=== PATIENT | male | born 1965 | race Caucasian/White ===

== ENCOUNTER 2020-01-31 12:29 | Outpatient (NON) | payer OTHER, SELFPAY ==
[2020-02-01 14:03] LABS: SARS-CoV-2 RNA PCR Negative
== END 2020-01-31 12:30 ==
LOC: ANHCOVIDDT 12:33
PROVIDERS: Visit Provider Registered Nurse
DX: Z20.828 Contact with and (suspected) exposure to other viral communicable diseases (principal); R52 Pain, unspecified
CPT/HCPCS: 87635; C9803; U0003

== ENCOUNTER 2020-04-13 01:26 | Outpatient (CLI) | payer OTHER, SELFPAY ==
[2020-04-13 18:47] LABS: SARS-CoV-2 RNA PCR Negative
== END 2020-04-13 01:27 | disposition home or self-care (01) ==
LOC: ANHCOVIDDT 01:26
PROVIDERS: PCP Family Medicine Adolescent Medicine; Visit Provider Surgery
DX: Z01.812 Encounter for preprocedural laboratory examination (principal); Z20.822 Contact with and (suspected) exposure to COVID-19
CPT/HCPCS: C9803; U0003; U0005

== ENCOUNTER 2020-04-15 08:13 | Outpatient (CLI) | payer OTHER, SELFPAY ==
--- NOTE | 2020-04-15 08:15 | ECG_ITS ---
Measurements Intervals [place] Rate: 71 P: 73 [place]: 155 QRS: 29 QRSD: 98 T: 32 QT: 398 QTc: 434 Interpretive Statements SINUS RHYTHM BASELINE ARTIFACT- I, II, AVR NORMAL ECG Electronically Signed On 04-15-2020 8:38:54 PSYCHIATRIC SPECIALIST by Boris Hammonds D.O.
== END 2020-04-15 08:14 | disposition home or self-care (01) ==
LOC: ANHSURGERY 08:15
PROVIDERS: PCP Family Medicine Adolescent Medicine; Visit Provider Surgery
DX: K43.9 Ventral hernia without obstruction or gangrene (principal); Z01.818 Encounter for other preprocedural examination
CPT/HCPCS: 36415; 86850; 86900; 86901; 93005

== ENCOUNTER 2020-04-16 01:44 | Day surgery (SDC) | payer OTHER, SELFPAY ==
[2020-04-11 15:09] VITALS: BMI 26.9
--- NOTE | 2020-04-15 15:16 | WPDANESEPPF ---
Anes - Initial Pre Proc Eval Procedure: Operation Date: 04/16/20 10:30 Proposed Procedures p Laparoscopic Ventral Hernia Repair With Mesh, Davinci Assisted - Eh Perez DO Date/Time: 04/15/20 15:16 Surgeon: Eh Perez DO Pre Op Diagnosis: Ventral Hernia Patient Data Age: 54 Gender: M Height: 1.83 m Weight: 90 kg Allergies Allergy/AdvReac Type Severity Reaction Status Date / Time No Known Allergies Allergy Verified 04/16/20 08:31 Home Medications Medication Instructions Recorded Confirmed Type losartan 100 mg tablet 100 mg PO DAILY 04/02/20 04/16/20 History Patient hx anesthesia problems: none Family hx anesthesia problems: none PMFSH Past Medical History Medical History (Updated 04/15/20 @ 15:17 by Suleiman Haider MD) Hypertension Smoker Ventral hernia without obstruction or gangrene Surgical History Surgical History S/P meniscectomy Family History Family History Father Family history of cardiovascular disease Family history of dementia Family history of lung disease Sibling Malignant neoplasm of prostate Mother Family history of malignant neoplasm of breast in first degree relative Esophageal cancer Social History Social History Smoking status: Current some day smoker Tobacco type: cigars Smokeless tobacco user: chewing tobacco Alcohol intake: current Living arrangements: with family Gender identity (if verbalized by the patient): Male Spiritual care concerns: No Anes - Eval Final PreProcedure Day of Procedure 04/15/20 15:16 Patient weight: overweight Heart: regular rate and rhythm Lungs: clear to auscultation and normal air movement Airway: Mallampati scale class II Neurological: alert and oriented Last oral intake: >/= 8 hours ASA classification: II Emergent: no Anesthetic plan: proceed Anesthesia type and monitoring: general ETT Informed Consent: The patient's anesthetic plan and its attendant risks and benefits were discussed with the patient/family/POA. Questions were solicited and answers provided to the satisfaction of the patient/family/POA.
[2020-04-16] VITALS (10 sets, daily range): BP systolic 114–127; BP diastolic 60–85; PULSE 56–80; RESP 13–20; TEMP 36.4; O2SAT 99–100; BMI 26.6
[2020-04-16] MEDS: KETOROLAC 15 MG/ML VIAL (*BKC) IV PUSH (09:04)
[2020-04-16] MEDS: ACETAMINOPHEN 500 MG TABLET 1000 MG PO (09:04)
[2020-04-16] MEDS: LACTATED RINGERS 1,000 ML 30 ML IV CONT ×2 (09:04→13:41)
--- NOTE | 2020-04-16 09:53 | WPDHPUPDATE1 ---
History and Physical Update Update Date/Time: 04/16/20 09:53 History and Physical has been reviewed, including an updated exam of the patient. There are NO changes in the patient's condition. Risks, benefits, and alternatives have been discussed and questions answered. Patient agrees to proceed with procedure.
[2020-04-16] MEDS: ceFAZolin 2 GM/D5W 50 ML 2 GM/50 ML BAG IVPB (11:25)
--- NOTE | 2020-04-16 13:26 | PM.PROC ---
Procedure Note - Detailed Date of procedure: 04/16/20 Pre-op diagnosis: Ventral Hernia Post-op diagnosis: same Procedure performed: Laparoscopic ventral hernia repair with Symbotex mesh, da Pedro Pablo assisted Description of procedure: Procedure as well as risks, benefits, and alternatives were discussed with the patient. Written consent was obtained and placed in chart prior to procedure. Patient was brought back to surgical suite. He was placed supine on operating table. Time-out was done to confirm patient and procedure. He was then intubated by the anesthesia department. A bump was placed under his left hip, and the bed was flexed slightly to extend the space between his costal margin and iliac crest. His abdomen was prepped and draped in sterile fashion using chlorhexidine prep. A 5 millimeter incision was made in the left upper quadrant, and a 5 millimeter Optiview trocar was advanced through the abdominal layers under direct visualization. Once inside the abdominal cavity, carbon dioxide insufflation was used to create a pneumoperitoneum. His abdomen was inspected. An 8 millimeter incision was made in the left lower quadrant, and an 8 millimeter robotic trocar was placed under direct visualization. Another 8 millimeter incision was made in the left lateral abdomen, and an 8 millimeter robotic trocar was placed under direct visualization. Exparel was infiltrated along the lateral abdominal quarles to perform a transversus abdominis plane block bilaterally. The 5 millimeter port was removed, the incision was extended to 12 millimeters, and a 12 millimeter air seal port was placed under direct visualization. A Kiet-Beth cone was also used to place an 0-Vicryl simple interrupted suture at this trocar site. The robotic arms were brought up to the patient's bedside and secured to the ports. The camera and instruments were inserted, and I then moved over to the robotic console and took control of the camera and instruments. After careful thorough inspection of the abdominal cavity, I began my dissection at the hernia. The hernia sac and preperitoneal fat was taken down using scissors with electrocautery. I also cleared the fascia of the falciform ligament and infraumbilical preperitoneal fat with electrocautery. The excised preperitoneal fat and hernia sac was then placed in an Endo-Catch bag and removed through the 12 mm port. I then measured the hernia size. The hernia measured 2 cm wide by 1 cm vertical. The fascia was closed using an 0-Stratafix running suture in a vertical fashion. A Symbotex 10cm x 15cm mesh was then placed within the abdominal cavity. This was oriented vertically with the mesh centered on the hernia defect. The mesh was then secured at the peripheral margins using 2 0 V lock running absorbable suture. The repair was inspected, and one final inspection was made around the abdominal cavity. The robotic instruments were then removed, and the robotic arms were disengaged from the trocars. The ports were then removed under direct visualization, the camera was removed, and the pneumoperitoneum was released. The 0 Vicryl transfascial suture was tied down. The skin of the incisions was then approximated using 4-0 Monocryl subcuticular suture. Exofin glue was then applied on top. The patient was then awakened from anesthesia, extubated, and transferred to recovery. Implants: Symbotex 10cm x 15cm Anesthesia: GETA and local (Exparel) Surgeon: Eh Perez DO Estimated blood loss (mL): 5 Drains: No Pathology: none sent Complications: No immediate complications Condition: stable Disposition: same day Findings: This is a 54-year-old man who presented with a bulge just superior to his umbilicus for the past several years. Over the past month he has noted this become painful with activity. The bulge has become somewhat larger over time as well. On exam he was found to have a reducible hernia just superior to his umbilicus. Dis
[2020-04-16] MEDS: oxyCODONE HCL (*CRX) 5 MG TAB IR PO (15:03)
== END 2020-04-16 15:56 | disposition home or self-care (01) ==
PROVIDERS: PCP Family Medicine Adolescent Medicine; Visit Provider Surgery
PROC: (CPT 49652; principal; 2020-04-16 10:30)
DX: K43.9 Ventral hernia without obstruction or gangrene (principal); I10 Essential (primary) hypertension; F17.290 Nicotine dependence, other tobacco product, uncomplicated; F17.220 Nicotine dependence, chewing tobacco, uncomplicated
CPT/HCPCS: 49652; S2900; 36415; 86850; 86900; 86901; 93005; A9270; C1781; C9290; C9803; J0690; J1170; J1885; J2250; J3010; J7030; J7120; U0003; U0005

== ENCOUNTER 2021-04-07 16:29 | Emergency (ER) | payer OTHER, SELFPAY ==
[2021-04-07 16:36] VITALS: BP 128/78; PULSE 91; RESP 16; TEMP 36.4; O2SAT 100
--- NOTE | 2021-04-07 16:38 | ED.SKABFB ---
HPI - Skin/Abscess/Foreign Bdy General Chief complaint: Skin/Abscess/Foreign Body Stated complaint: hives Time Seen by Provider: 04/07/21 16:39 Source: patient, RN notes reviewed and old records reviewed Mode of arrival: ambulatory Limitations: no limitations History of Present Illness HPI narrative: 55-year-old male presents to [facility] with 2-day duration of rash which is itchy and contains raised blanchable hives various areas on the body. Patient has noted hive like rash noted to chest , back and neck, states he took 2 benadry this afternoon which did help the itching for awhile. Patient reports no new medications, food, soaps. lotions, laundry detergents, reports no one else in household has rash, no recent travel or any new pets. Patient reports that he has no difficutly with his swallowing or with his breathing with lungs clear to auscultation. MD complaint: rash Onset (ago): day(s) (2) Tetanus up to date: unsure Location: neck, chest and back Severity: moderate Related Data Home Medications Medication Instructions Recorded Confirmed losartan 100 mg tablet 100 mg PO DAILY 04/02/20 06/10/20 Allergies Allergy/AdvReac Type Severity Reaction Status Date / Time No Known Allergies Allergy Verified 06/06/20 14:20 Review of Systems Review of Systems: CONSTITUTIONAL: Denies fever, chills, or sweats. EYES: Denies visual changes, redness, or discharge. ENT: Denies rhinorrhea, congestion, sore throat, or otalgia. CARDIOVASCULAR: Denies chest pain, palpitations, or edema. RESPIRATORY: Denies cough or dyspnea. GASTROINTESTINAL: Denies abdominal pain, nausea, vomiting, or diarrhea. GENITOURINARY: Denies dysuria or hematuria. SKIN: positive for red raised hive type of rash with itching. MUSCULOSKELETAL: Denies back pain, joint pain, or myalgia. NEUROLOGIC: Denies headache, numbness, or weakness. PSYCHIATRIC: Denies anxiety or depression. All systems reviewed & are unremarkable except as noted in HPI and below PMFSH Past Medical History Medical History Abnormal colonoscopy 12/01, polyp Repeat 12/06 Hypertension Smoker Ventral hernia without obstruction or gangrene Surgical History Surgical History H/O ventral hernia repair 04/16/20 Laparoscopic ventral hernia repair with Symbotex mesh, da Pedro Pablo assisted S/P meniscectomy Family History Family History Father Family history of cardiovascular disease Family history of dementia Family history of lung disease Sibling Malignant neoplasm of prostate Mother Family history of malignant neoplasm of breast in first degree relative Esophageal cancer Social History Social History Smoking status: Current every day smoker Tobacco type: cigars Smokeless tobacco user: chewing tobacco Alcohol intake: current Gender identity (if verbalized by the patient): Male Spiritual care concerns: No Comments At time of signature, agree with nursing past medical, surgical, social and family history. There is no relevant family history pertinent to the presenting complaint Exam Narrative: GENERAL: Well-appearing, well-nourished, and in no acute distress. HEAD: Normocephalic, atraumatic. EYES: PERRLA and EOMI. ENT: Nares clear, no rhinorrhea or epistaxis. Mucous membranes moist.TM's normal with good light reflex, throat pink with no lesions or exudates no tonsil swelling. NECK: Supple.no lymphadenopathy CHEST: Clear to auscultation. No respiratory distress. SAO2 100% o room air. no tachypnea or accessory muscle use. HEART: Regular rate and rhythm. No murmur heard. Normal peripheral pulses. ABDOMEN: Soft, nontender, nondistended, normal active bowel sounds. EXTREMITIES: Normal range of motion. No edema. SKIN: Warm, dry, blanchable red raised hive type of lala
[2021-04-07] MEDS: methylPREDNISolone ACETATE 80 MG/ML VIAL IM (16:55)
== END 2021-04-07 17:13 | disposition home or self-care (01) ==
PROVIDERS: Emergency Provider Registered Nurse; PCP Family Medicine Adolescent Medicine
DX: L23.9 Allergic contact dermatitis, unspecified cause (principal); F17.290 Nicotine dependence, other tobacco product, uncomplicated; I10 Essential (primary) hypertension
CPT/HCPCS: 96372; 99213; G0463; J1040

== ENCOUNTER → 2022-06-02 15:11 | Outpatient (CLI) | payer OTHER, SELFPAY ==
--- NOTE | ~2022-06-02 | XR_ITS ---
EXAMINATION: XR chest 2V Exam Date/Time: 06/02/2022 15:16 CDT HISTORY: Shortness of breath; hx of HTN, smoker Comparison: None available. RESULT: Lines, tubes, and devices: None. Lungs and pleura: Clear. Cardiomediastinal silhouette: Normal. Other: No acute osseous or upper abdominal finding. IMPRESSION: No acute cardiopulmonary process. Reviewed, dictated and finalized at location K.
== END ==
PROVIDERS: PCP Family Medicine Adolescent Medicine; Visit Provider Physician Assistant
DX: R06.02 Shortness of breath (principal); I10 Essential (primary) hypertension
CPT/HCPCS: 71046

== ENCOUNTER 2024-05-02 14:45 | Outpatient (CLI) | payer OTHER, SELFPAY ==
--- NOTE | ~2024-05-02 | MR_ITS ---
EXAMINATION: MR knee LT wo con DATE: 05/02/2024 15:14 INDICATION: Left knee pain TECHNIQUE: Magnetic resonance imaging (MRI) of the left knee was performed without intravenous contra st. Sequences included coronal PD-weighted FSE, coronal PD-weighted FS FSE, sagittal T2-weighted FSE , sagittal PD-weighted FS FSE and axial PD weighted fat saturated FSE. COMPARISON: None. FINDINGS: Medial compartment: Complex tear at the posterior horn of the medial meniscus. Articular cartilage is normal. Lateral compartment: Lateral meniscus is normal. Partial-thickness chondral fissuring at the central aspect of the lateral tibial plateau. Articular cartilage along the weightbearing lateral femoral condyle is normal. Patellofemoral compartment: Deep chondral fissuring with mild subarticular edema-like signal change at the patellar apical ridge and at the lateral patellar facet. Ligaments and tendons: Anterior and posterior cruciate ligaments are normal. The medial collateral ligament and fibular thong ateral ligament complex are normal. The extensor mechanism is normal. The visualized medial and later al hamstring tendons as well as the iliotibial band are normal. Fluid: Physiologic amount of fluid in the joint space. No loose osteochondral bodies identified. Osseous/other: No fracture or pathologic marrow replacing process. IMPRESSION: 1. Complex tear of the posterior horn of the medial meniscus. 2. 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 Reviewed, dictated and finalized at location A. N HOT WIRE CUTTER IMPRESSION: 1. Complex tear of the posterior horn of the medial meniscus. 2. Mild distal femoral and lateral compartment osteoarthritis with high-grade p atellar and moderate grade lateral tibial plateau chondromalacia.
== END 2024-05-02 14:46 | disposition home or self-care (01) ==
LOC: GOSHIMG 14:46
PROVIDERS: PCP Family Medicine Adolescent Medicine; Visit Provider Family Medicine Adolescent Medicine
DX: S83.232A Complex tear of medial meniscus, current injury, left knee, initial encounter (principal); X58.XXXA Exposure to other specified factors, initial encounter; M17.12 Unilateral primary osteoarthritis, left knee
CPT/HCPCS: 73721

== ENCOUNTER 2024-09-11 14:02 | Emergency (ER) | payer OTHER, SELFPAY ==
[2024-09-11 14:08] VITALS: BP 121/91; PULSE 84; RESP 16; TEMP 36.8; O2SAT 99
--- NOTE | 2024-09-11 14:14 | ED_ITS ---
HPI - Eye Problem General Chief complaint: Eye Problems Stated complaint: Eye Irritation Source: patient and RN notes reviewed Mode of arrival: ambulatory Limitations: no limitations History of Present Illness HPI Narrative: Patient is a 59 year old male who presents to the [facility] with complaints of left eye pain. Patient states that he was cleaning the outside of his house with bleach, and the bleach splashed up into his eye. He reports left eye pain, redness, and excessive tearing. States that he immediately flushed the eye following the incident. Related Data Home Medications ?Medication ?Instructions ?Recorded ?Confirmed ?Last Taken ?Type Fish Oil 09/11/24 Unknown History Allergies Allergy/AdvReac Type Severity Reaction Status Date / Time No Known Allergies Allergy Verified 09/11/24 14:08 Review of Systems Review of Systems: CONSTITUTIONAL: Denies fever, chills, or sweats. EYES: Reports left eye pain ENT: Denies otalgia and sore throat CARDIOVASCULAR: Denies chest pain, palpitations, or edema. RESPIRATORY: Denies cough or dyspnea. GASTROINTESTINAL: Denies abdominal pain, nausea, vomiting, or diarrhea. GENITOURINARY: Denies dysuria or hematuria. SKIN: Denies rash or itching. MUSCULOSKELETAL: Denies back pain, joint pain, or myalgia. NEUROLOGIC: Denies headache, numbness, or weakness. Pertinent positives per HPI. PMFSH Past Medical History Medical History Abnormal colonoscopy 12/01, polyp Repeat 12/06 Smoker Ventral hernia without obstruction or gangrene Hypertension Surgical History Surgical History History of hydrocelectomy (02/2024) Left H/O ventral hernia repair (04/2020) 04/16/20 Laparoscopic ventral hernia repair with Symbotex mesh, da Pedro Pablo assisted S/P meniscectomy Family History Family History Father Family history of cardiovascular disease Family history of dementia Family history of lung disease Sibling Malignant neoplasm of prostate Mother Family history of malignant neoplasm of breast in first degree relative Esophageal cancer Social History Social History Smoking status: Current every day smoker Tobacco type: cigars Smokeless tobacco user: chewing tobacco Alcohol intake: current Do You Feel Safe in your Home?: Yes Lack of Transportation: No Lack of Food: Never True Current Housing: I Have Housing Concerned About Future Housing: No Difficulty Paying Gas/Electric Bills: No Difficulty Paying for Meds: No Currently Unemployed: No Education: Master's Degree or Higher Difficulty w/ Childcare or Family Care: No Living arrangements: with family Gender identity (if verbalized by the patient): Male Spiritual care concerns: No Comments At the time of my signature, I reviewed and agree with the nursing past medical, surgical, social, and family history. There is no relevant family history pertinent to the patient complaint. Exam Narrative: GENERAL: This is a well-nourished, well-developed patient, in no apparent distress. HEAD: normocephalic, atraumatic. EYES: Left eye is injected with excessive tearing. EARS: External ears normal, auditory canals clear and without drainage, TMs normal without perforation. Hearing grossly intact. NOSE: External nose normal with no obvious nasal discharge, nares without redness, no rhinorrhea. THROAT: Mucous membranes moist, posterior pharynx clear. NECK: Neck supple, non-tender without lymphadenopathy, masses or thyromegaly. CARDIOVASCULAR: Regular rate and rhythm without murmurs, gallops, or rubs. RESPIRATORY: Clear to auscultation. GASTROINTESTINAL: Abdomen soft, non-tender. No guarding. SKIN: warm, intact with no suspicious lesions or rash, good texture and turgor. NEURO: awake, alert, and oriented to person, place and time. There were no obvious focal neurologic abnormalities. Course Course Level of Care: Express Care Visit Vital Signs Vital signs: Vital Signs Temperature 98.2 F 09/11/24 14:08 Pulse Rate 84 09/11/24 14:08 Respiratory Rate 16 09/11/24 14:08 Blood Pressure 121/91 H 09/11/24 14:08 Pulse Oximetry 99 09/11/24 14:08 Oxygen Delivery Room Air 09/11/24 14:08 Temperature 98.2 F 09/11/24 14:08 Pulse Rate 84 09/11/24 14:08 Respiratory Rate 16 09/11/24 14:08 Blood Pressure 121/91 H 09/11/24 14:08 Pulse Oximetry 99 09/11/24 14:08 Oxygen Delivery Room Air 09/11/24 14:08 Reviewed MDM - Eye Problem MDM Narrative Medical decision making narrative: No pH/litmus paper available to test PH of the eye. [facility] contacted and accepted patient for evaluation. Patient advised to go directly to their [place] office. Molecular Genetic Pathologist is expecting him. Patient agreed to go stra ight to [facility]. is driving patient there. Differential Diagnosis Differential diagnosis: Likely corneal abrasion, corneal ulcer and other (chemical burn to left eye) Critical Care Time Critical Care Time Critical Care Time: No Discharge Plan Discharge Clinical Impression: Chemical injury of left eye Patient Disposition: Home Condition: Stable Instructions: Chemical Eye Jonse (ED) Additional Instructions: Go directly to [facility] in [place], [place] for evaluation. Eye drops as prescribed. -Do this for 3 to 4 days until all redness and discharge has disappeared. -Cold compresses to the affected eye for comfort -May need warm compresses to remove debris in the morning -When cleaning the eyes used a washcloth/cotton ball in one direction then ch radhames washcloths/cotton ball before using it on another eye. -Do not share medicine--do not touch the eye with the medicine -Alternate or take Tylenol or ibuprofen as directed in the bottle for pain -Avoid screen time--television, computer, tablet or phone. Follow-up with PCP or thermograph operator if condition is not improving in 3-5days or sooner if you have new symptoms/concerns. Patient Language: Cymraes Prescriptions: New erythromycin 5 mg/gram (0.5 %) ointment 1 applic LEFT EYE DAILY Qty: 3.5 0RF No Action Fish Oil losartan 100 mg tablet 100 mg PO DAILY Qty: 90 2RF Follow-up/Referrals: David Bennett MD [Primary Care Provider] - Time of Disposition: 14:31
== END 2024-09-11 14:33 | disposition home or self-care (01) ==
PROVIDERS: Emergency Provider Nurse Practitioner; PCP Family Medicine Adolescent Medicine
DX: T54.91XA Toxic effect of unspecified corrosive substance, accidental (unintentional), initial encounter (principal); T26.92XA Corrosion of left eye and adnexa, part unspecified, initial encounter; F17.290 Nicotine dependence, other tobacco product, uncomplicated; F17.220 Nicotine dependence, chewing tobacco, uncomplicated; I10 Essential (primary) hypertension
CPT/HCPCS: 99213; G0463